=== PATIENT | female | born 1975 | race Two or more races ===

== ENCOUNTER 2016-12-16 15:58 | Emergency (ER) | payer BC ==
[2016-12-16] MEDS ORDERED: Sodium Chloride 0.9% 10 ML Syringe FLUSH PRN (16:12)
[2016-12-16] MEDS ORDERED: Labetalol 100 MG/20 ML MDV IVPUSH ONE ×4 (16:13→18:28)
[2016-12-16] MEDS ORDERED: Ondansetron 4 MG/2 ML SDV IVPUSH ONE (16:20)
[2016-12-16] MEDS ORDERED: Acetaminophen 325 MG Tab PO ONE (16:20)
--- NOTE | 2016-12-16 16:47 | EDM.PDOC ---
ED HPI GENERAL MEDICAL PROBLEM - General Chief Complaint: Neurological Problem Stated Complaint: HEAD ACHE, VISION CHANGES, SOB Time Seen by Provider: 12/16/16 16:12 Source of Information: Reports: Patient, RN Notes Reviewed - History of Present Illness INITIAL COMMENTS - FREE TEXT/NARRATIVE: 41-year-old female comes in with feeling of headache, nausea,nonspecific dizziness. She does have long-standing history of hypertension having been on medication for about 10 years. She also does have history of known coronary artery disease and borderline diabetes. And out of her blood pressure medicines about a month ago. She states that she did have some headache and nonspecific dizziness about a week ago but that all went away on its own. She then had been feeling fine this past week until today with onset of the more severe frontal headache this afternoon. No chest discomfort. She has not been coughing any more than usual. No fever or chills. No abdominal pain or vomiting. Appetite has been diminished. She has been taking fluids okay. Headache Pain Score (Numeric/FACES): 10 - Related Data Allergies Allergy/AdvReac Type Severity Reaction Status Date / Time No Known Allergies Allergy Verified 12/16/16 16:14 Home Meds: Home Meds Metoprolol Tartrate 100 mg PO BID 11/13/14 [History] NIFEdipine [Nifedipine ER] 90 mg PO DAILY 11/13/14 [History] Aspirin 1 tab PO DAILY 12/26/14 [History] Clopidogrel [Plavix] 1 tab PO DAILY 12/26/14 [History] atorvaSTATin [Lipitor] 1 tab PO DAILY 12/26/14 [History] glipiZIDE [Glipizide ER] 1 tab PO DAILY 12/26/14 [History] Clindamycin HCl [Cleocin HCl] 300 mg PO TID #21 capsule 04/18/15 [Rx] Doxycycline [Vibramycin] 100 mg PO Q12HR #20 cap 04/18/15 [Rx] Metoprolol Tartrate 100 mg PO BID #10 tablet 12/16/16 [Rx] NIFEdipine [Nifedipine ER] 90 mg PO DAILY #6 tab.er.24 12/16/16 [Rx] Past Medical History Other Cardiovascular History: NSTEMI Other OB/BYN History: Uterine Hemmorage, Ovarian cyst removed 11/25 Other Oncologic History: Found when having ovarian cyst removed. Small cancerous area noted on uterus and was removed needed no further treatment. Social & Family History - Tobacco Use Smoking Status *Q: Former Smoker Years of Tobacco use: 25 Used Tobacco, but Quit: No Month Tobacco Last Used: november Second Hand Smoke Exposure: No - Alcohol Use Days Per Week of Alcohol Use: 0 - Recreational Drug Use Recreational Drug Use: Yes Drug Use in Last 12 Months: No Recreational Drug Type: Reports: Marijuana/Hashish Recreational Drug Use Frequency: Not Used In Over 1 Year ED ROS GENERAL - Review of Systems Review Of Systems: See Below Constitutional: Denies: Fever HEENT: Denies: Sinus Problem, Throat Pain, Vision Change Respiratory: Denies: Shortness of Breath Cardiovascular: Denies: Chest Pain GI/Abdominal: Reports: Nausea. Denies: Abdominal Pain, Vomiting Musculoskeletal: Reports: No Symptoms Skin: Reports: No Symptoms Neurological: Reports: Headache (Frontal, mild throbbing). Denies: Numbness, Tingling, Trouble Speaking, Difficulty Walking, Weakness ED EXAM, GENERAL - Physical Exam Exam: See Below General Appearance: Alert, No Apparent Distress Eye Exam: Bilateral Eye: PERRL Throat/Mouth: Normal Inspection, Normal Oropharynx Head: Atraumatic. No: Facial Swelling Neck: Supple, Full Range of Motion Respiratory/Chest: No Respiratory Distress, Lungs Clear, Normal Breath Sounds Cardiovascular: Regular Rate, Rhythm Back Exam: No: CVA Tenderness (L), CVA Tenderness (R) Extremities: Normal Inspection. No: Pedal Edema, Leg Pain Neurological: Alert, Oriented, No Motor/Sensory Deficits Skin Exam: Warm, Dry, Normal Color Course - Vital Signs Last Recorded V/S: Last Vital Signs Temp 98.2 F 12/16/16 16:14 Pulse 77 12/16/16 18:33 Resp 18 12/16/16 16:14 BP 178/103 H 12/16/16 18:33 Pulse Ox 95 12/16/16 16:14 - Orders/Labs/Meds Orders: Active Orders 24 hr Category Date Time Status EKG 12 Lead [EKG Documentation Completion] [RC] STAT Care 12/16/16 16:12 Active Peripheral IV Care [RC] . DIRECTED Care 12/16/16 16:13 Active Sodium Chloride 0.9% [Saline Flush] Med 12/16/16 16:12 Active 10 ml FLUSH ASDIRECTED PRN Peripheral IV Insertion Adult [OM.PC] Stat Oth 12/16/16 16:13 Ordered Medication Orders Sodium Chloride (Saline Flush) 10 ml FLUSH ASDIRECTED PRN PRN Reason: Keep Vein Open Last Admin: 12/16/16 16:28 Dose: 10 ml Labs: Laboratory Tests 12/16/16 12/16/16 12/16/16 Range/Units 16:21 16:25 16:25 WBC 6.87 (3.98-10.04) K/mm3 RBC 5.26 H (3.98-5.22) M/mm3 Hgb 16.1 H (11.2-15.7) gm/L Hct 47.5 H (34.1-44.9) % MCV 90.3 (79.4-94.8) fl MCH 30.6 (25.6-32.2) pg MCHC 33.9 (32.2-35.5) g/dl RDW Std Deviation 47.9 H (36.4-46.3) fL Plt Count 142 L (182-369) K/mm3 MPV 11.9 (9.4-12.3) fl Neut % (Auto) 64.2 (34.0-71.1) % Lymph % (Auto) 29.4 (19.3-51.7) % [place] % (Auto) 4.5 L (4.7-12.5) % Eos % (Auto) 1.0 (0.7-5.8) Baso % (Auto) 0.3 (0.1-1.2) % Neut # (Auto) 4.41 (1.56-6.13) K/mm3 Lymph # (Auto) 2.02 (1.18-3.74) K/mm3 [place] # (Auto) 0.31 (0.24-0.36) K/mm3 Eos # (Auto) 0.07 (0.04-0.36) K/mm3 Baso # (Auto) 0.02 (0.01-0.08) K/mm3 Sodium 141 (136-145) mEq/L Potassium 3.7 (3.5-5.1) mEq/L Chloride 105 (98-107) mEq/L Carbon Dioxide 24 (21-32) mEq/L Anion Gap 15.7 H (5-15) BUN 17 (7-18) mg/dL Creatinine 0.7 (0.55-1.02) mg/dL Est Cr Clr Drug Dosing 131.04 mL/min Estimated GFR (MDRD) > 60 (>60) mL/min BUN/Creatinine Ratio 24.3 H (14-18) Glucose 212 H (74-106) mg/dL POC Glucose 222 H (70-105) mg/dL Calcium 8.8 (8.5-10.1) mg/dL Total Bilirubin 0.4 (0.2-1.0) mg/dL AST 18 (15-37) U/L ALT 45 (14-59) U/L Alkaline Phosphatase 114 (46-116) U/L Total Protein 7.2 (6.4-8.2) g/dl Albumin 3.6 (3.4-5.0) g/dl Globulin 3.6 gm/dL Albumin/Globulin Ratio 1.0 (1-2) Meds: Medications Generic Name Dose Route Start Last Admin Trade Name Freq PRN Reason Stop Dose Admin Sodium Chloride 10 ml 12/16/16 16:12 12/16/16 16:28 Saline Flush FLUSH 10 ml ASDIRECTED PRN Administration Keep Vein Open Discontinued Medications Generic Name Dose Route Start Last Admin Trade Name Freq PRN Reason Stop Dose Admin Acetaminophen 975 mg 12/16/16 16:20 12/16/16 16:27 Tylenol PO 12/16/16 16:21 975 mg NOW ONE Administration Labetalol HCl 20 mg 12/16/16 16:13 12/16/16 16:23 Normodyne IVPUSH 12/16/16 16:14 20 mg ONETIME ONE Administration Protocol Labetalol HCl 20 mg 12/16/16 16:43 12/16/16 16:53 Normodyne IVPUSH 12/16/16 16:44 20 mg ONETIME ONE Administration Protocol Labetalol HCl 20 mg 12/16/16 17:18 12/16/16 17:22 Normodyne IVPUSH 12/16/16 17:19 20 mg ONETIME ONE Administration Protocol Labetalol HCl 20 mg 12/16/16 18:28 12/16/16 18:33 Normodyne IVPUSH 12/16/16 18:29 20 mg ONETIME ONE Administration Protocol Ondansetron HCl 4 mg 12/16/16 16:20 12/16/16 16:27 Zofran IVPUSH 12/16/16 16:21 4 mg ONETIME ONE Administration Departure - Departure Time of Disposition: 19:08 Disposition: Home, Self-Care 01 Condition: fair Clinical Impression: Hyperglycemia Hypertension Qualifiers: Hypertension type: essential hypertension Qualified Code(s): I10 - Essential ( primary) hypertension - Discharge Information Prescriptions: Metoprolol Tartrate 100 mg PO BID #10 tablet NIFEdipine [Nifedipine ER] 90 mg PO DAILY #6 tab.er.24 Referrals: Fang Jacinto [facility] [Primary Care Provider] - Forms: ED Department Discharge Additional Instructions: Low salt diet, eat plenty of fruit and vegetables, try avoid flour and sugar foods as much as you can, try get out and walk and exercise on a regular basis, trouble all 100 mg twice daily, you can take your first dose this evening nifedipine 90 mg daily, take your first dose tomorrow morning. Followup clinic as soon as possible this week for further evaluation and treatment, return to ED as needed - My Orders Last 24 Hours: My Active Orders 12/16/16 16:12 EKG 12 Lead [EKG Documentation Completion] [RC] STAT Sodium Chloride 0.9% [Saline Flush] 10 ml FLUSH ASDIRECTED PRN 12/16/16 16:13 Peripheral IV Care [RC] . DIRECTED Peripheral IV Insertion Adult [OM.PC] Stat - Assessment/Plan Last 24 Hours: My Active Orders 12/16/16 16:12 EKG 12 Lead [EKG Documentation Completion] [RC] STAT Sodium Chloride 0.9% [Saline Flush] 10 ml FLUSH ASDIRECTED PRN 12/16/16 16:13 Peripheral IV Care [RC] . DIRECTED Peripheral IV Insertion Adult [OM.PC] Stat
[2016-12-16 19:32] VITALS: BP 175/114
== END 2016-12-16 19:20 | disposition home or self-care (01) ==
LOC: JD.ED 15:58
DX: E11.65 Type 2 diabetes mellitus with hyperglycemia (principal); I10 Essential (primary) hypertension; I25.2 Old myocardial infarction; Z79.82 Long term (current) use of aspirin; Z79.899 Other long term (current) drug therapy; Z87.891 Personal history of nicotine dependence
CPT/HCPCS: 36415; 80053; 82962; 85025; 93005; 96374; 96375; 96376; 99284; A9270; J2405; J7050

== ENCOUNTER 2017-02-03 11:57 | Emergency (ER) | payer SELFPAY | END 2017-02-03 16:45 | disposition EXP | LOC: JD.ED 11:57 | CPT/HCPCS: 99285 ==